=== PATIENT | male | born 1975 | race Caucasian/White ===

== ENCOUNTER 2021-06-04 09:40 | Emergency (ER) | payer OTHER, SELFPAY ==
[2021-06-04 10:35] VITALS: BP 152/88; PULSE 106; RESP 18; TEMP 39.1; O2SAT 99
--- NOTE | 2021-06-04 11:16 | ED.EAR ---
HPI - Ear Problem General Chief complaint: Ear Stated complaint: ear pain Time Seen by Provider: 06/04/21 11:10 Source: patient and RN notes reviewed Mode of arrival: ambulatory Limitations: no limitations History of Present Illness HPI Narrative: Patient presents today complaining of a 2-day history of right ear pain, muffled hearing. Pain is throbbing. Currently rates pain 5/10 and has been taking ibuprofen with mild relief. Denies drainage or any additional symptoms to include cough, congestion, rhinorrhea, sore throat. Patient did not know he had a fever until he arrived at urgent care today. Fever upon arrival was 102.4. Denies any recent antibiotics. MD Complaint: ear pain Related Data Home Medications Medication Instructions Recorded Confirmed No Home Medications 06/04/21 06/04/21 Allergies Allergy/AdvReac Type Severity Reaction Status Date / Time No Known Allergies Allergy Mild Verified 12/12/12 14:20 Review of Systems Review of Systems: CONSTITUTIONAL: Denies body aches, fever, chills, or sweats. EYES: Denies visual changes, redness, or discharge. ENT: Denies rhinorrhea, congestion, sore throat. + Right ear pain with decreased hearing CARDIOVASCULAR: Denies chest pain, palpitations, or edema. RESPIRATORY: Denies cough or dyspnea. GASTROINTESTINAL: Denies abdominal pain, nausea, vomiting, or diarrhea. GENITOURINARY: Denies dysuria or hematuria. SKIN: Denies rash, itching, or wounds. MUSCULOSKELETAL: Denies back pain, joint pain, or myalgia. NEUROLOGIC: Denies headache, numbness, tingling, or weakness. PSYCH: Denies depression or anxiety. PMFSH Comments At time of signature, I have reviewed and agree with nursing past medical, surgical, social and family history unless otherwise noted. Please see nursing chart for further information. There is no relevant family history pertinent to the presenting complaint Exam Narrative: GENERAL: Well-appearing, well-nourished, and in no acute distress. HEAD: Normocephalic, atraumatic. EYES: EOMI. No redness or drainage. Conjunctivae normal. ENT: Mucous membranes pink and moist. Nares clear. No rhinorrhea. Left TM normal. Right TM erythematous and bulging. NECK: Normal AROM. Supple. No lymphadenopathy. CHEST: No respiratory distress. EXTREMITIES: Normal range of motion. No edema. SKIN: Warm, dry, no rash. Capillary refill normal. Normal skin turgor. NEURO: No focal deficits. Alert and oriented x3. Gait steady. PSYCH: Normal affect. No signs of depression or anxiety. Course Vital Signs Vital signs: Vital Signs Temperature 102.4 F H 06/04/21 10:35 Pulse Rate 106 H 06/04/21 10:35 Respiratory Rate 18 06/04/21 10:35 Blood Pressure 152/88 H 06/04/21 10:35 Pulse Oximetry 99 06/04/21 10:35 Temperature 102.4 F H 06/04/21 10:35 Pulse Rate 106 H 06/04/21 10:35 Respiratory Rate 18 06/04/21 10:35 Blood Pressure 152/88 H 06/04/21 10:35 Pulse Oximetry 99 06/04/21 10:35 Reviewed. Pt has been instructed to follow up with his PCP regarding his elevated blood pressure today. Medical Decision Making Differential Diagnosis Differential Diagnosis: Otitis media, otitis externa, ruptured TM, serous otitis, eustachian tube dysfunction Vital Signs Vital Signs: Vital Signs Temperature 102.4 F H 06/04/21 10:35 Pulse Rate 106 H 06/04/21 10:35 Respiratory Rate 18 06/04/21 10:35 Blood Pressure 152/88 H 06/04/21 10:35 Pulse Oximetry 99 06/04/21 10:35 Temperature 102.4 F H 06/04/21 10:35 Pulse Rate 106 H 06/04/21 10:35 Respiratory Rate 18 06/04/21 10:35 Blood Pressure 152/88 H 06/04/21 10:35 Pulse Oximetry 99 06/04/21 10:35 Critical Care Time Critical Care Time Critical Care Time: No Discharge Plan Discharge Clinical Impression: Acute suppur right otitis media w/o spontan rupture tympanic membrane Qualifiers: Recurrence: non-recurrent Qualified Code(s): H66.001 - Acute suppurative otitis media wit
== END 2021-06-04 11:25 | disposition home or self-care (01) ==
PROVIDERS: Emergency Provider Nurse Practitioner
DX: H66.001 Acute suppurative otitis media without spontaneous rupture of ear drum, right ear (principal)
CPT/HCPCS: 99203; G0463

== ENCOUNTER 2021-09-17 11:19 | Emergency (ER) | payer OTHER, SELFPAY ==
[2021-09-17 11:24] VITALS: BP 136/83; PULSE 68; RESP 18; TEMP 36.9; O2SAT 98
--- NOTE | 2021-09-17 12:37 | ED.GENADULT ---
HPI - General Adult General Chief complaint: Unspecified Stated complaint: left back side pain Time Seen by Provider: 09/17/21 12:38 Source: patient and RN notes reviewed Mode of arrival: ambulatory Limitations: no limitations History of Present Illness HPI narrative: 46-year-old male presented for complaint of left-sided back pain after injury yesterday. He states he was playing with the dog and fell forward landing on his head, and felt sudden pain to the left mid/lateral back. Pain has persisted since onset, constant and sharp, Pain is worse with moving/twisting. He has taken four Advil this morning but was unable to work. He denies head injury, LOC, headache, dizziness, nausea, confusion. No other complaints. Related Data Allergies Allergy/AdvReac Type Severity Reaction Status Date / Time No Known Allergies Allergy Mild Verified 09/17/21 11:49 Review of Systems Review of Systems: CONSTITUTIONAL: Denies body aches, fever, chills, or sweats. CARDIOVASCULAR: Denies chest pain, palpitations, or edema. RESPIRATORY: Denies cough or dyspnea. GASTROINTESTINAL: Denies abdominal pain, nausea, vomiting, or diarrhea. GENITOURINARY: Denies dysuria, frequency, urgency, hematuria, flank pain SKIN: Endorses left mid/lateral back pain MUSCULOSKELETAL: Denies back pain or myalgia. PMFSH Comments At time of signature, I have reviewed and agree with nursing past medical, surgical, social and family history unless otherwise noted. Please see nursing chart for further information. There is no relevant family history pertinent to the presenting complaint Exam Narrative: GENERAL: Well-appearing, well-nourished, and in no acute distress. HEAD: Normocephalic, atraumatic. EYES: PERRLA and EOMI. NECK: Supple. No lymphadenopathy. CHEST: Clear to auscultation. No respiratory distress. HEART: Regular rate and rhythm. Distal pulses palpable and equal, cap refill ?3 seconds ABDOMEN: Soft, nontender, nondistended, normal active bowel sounds, no palpable or pulsatile masses. No CVA tenderness MUSCULOSKELETAL: Normal range of motion and strength in all extremities; 5/5 strength with hip flexion and extension. Normal sensation in dermatomal distributions with tenderness to palpation at rib 7-8 area, no redness, bruising, or lesions; No midline back tenderness to palpation. No paraspinal tenderness. Transfers from lying to sitting to standing. SKIN: Warm, dry, no rash. No ecchymosis, erythema, open wounds to back. NEURO: No focal deficits. Alert and oriented x3. Normal gait. PSYCH: Normal mood and affect Course Course Emergency Course: Patient is aware of diagnosis, understands and agrees to treatment plan. Anticipatory guidance given. Patient agrees to follow-up as directed and is aware of reasons to seek care at the emergency department. Portions of this record may have been created with voice recognition software Level of Care: Express Care Visit Vital Signs Vital signs: Vital Signs Temperature 98.4 F 09/17/21 11:24 Pulse Rate 68 09/17/21 11:24 Respiratory Rate 18 09/17/21 11:24 Blood Pressure 136/83 09/17/21 11:24 Pulse Oximetry 98 09/17/21 11:24 Temperature 98.4 F 09/17/21 11:24 Pulse Rate 68 09/17/21 11:24 Respiratory Rate 18 09/17/21 11:24 Blood Pressure 136/83 09/17/21 11:24 Pulse Oximetry 98 09/17/21 11:24 Reviewed Medical Decision Making MDM Narrative Medical decision making narrative: No risk factors or findings concerning for epidural abscess, diskitis, vertebral osteomyelitis, cord compression, cauda equina, vertebral fracture or bone malignancy, AAA, or pyelonephritis. Appers at this time to be musculoskeletal in nature, given exam and mechanism of injury. Patient instructed to consider further imaging and workup through their primary care physician as an outpatient if symptoms persist. Differential Diagnosis Differential Diagnosis: musculoskeletal injury, rib fracture/contusion, vertebral fractu
[2021-09-17] MEDS: KETOROLAC (*BKC) 60 MG/2 ML VIAL IM (12:52)
== END 2021-09-17 13:07 | disposition home or self-care (01) ==
PROVIDERS: Emergency Provider Nurse Practitioner Family
DX: M54.9 Dorsalgia, unspecified (principal)
CPT/HCPCS: 96372; 99213; G0463; J1885